=== PATIENT | male | born 1985 | race Caucasian/White ===

== ENCOUNTER 2017-08-21 03:10 | Emergency (ER) | payer BC, OTHER ==
[~2017-08-21] VITALS: Ht 170.2 cm; Wt 68.8 kg
[2017-08-21] MEDS ORDERED: LIDOcaine Viscous 15ml cup PO ONE (04:05)
[2017-08-21 04:36] VITALS: BP 136/90
[2017-08-21] MEDS ORDERED: ibuprofen tablet 400 MG TABLET PO ONE (04:40)
[2017-08-21] MEDS ORDERED: acetaminophen 325mg tablet PO ONE (04:40)
[2017-08-21] MEDS ORDERED: PENI500T2 PO (04:46)
[2017-08-21] MEDS ORDERED: penicillin V potassium 500mg tablet PO ONE (04:50)
== END 2017-08-21 05:01 | disposition home or self-care (01) ==
LOC: ER 03:11
DX: K08.89 Other specified disorders of teeth and supporting structures (principal); Z79.899 Other long term (current) drug therapy
CPT/HCPCS: 99284

== ENCOUNTER 2018-02-03 11:10 | Emergency (ER) | payer OTHER ==
[~2018-02-03] VITALS: Ht 170.2 cm; Wt 68.2 kg
[2018-02-03] MEDS ORDERED: PRED20TA PO (11:54)
[2018-02-03] MEDS ORDERED: AZIT-72 PO (11:54)
[2018-02-03] MEDS ORDERED: ALBU8HFA PO (11:54)
[2018-02-03] MEDS ORDERED: predniSONE 20 mg tablet PO ONE (11:55)
[2018-02-03 12:11] VITALS: BP 128/75
== END 2018-02-03 12:20 | disposition home or self-care (01) ==
LOC: ER 11:10
DX: J40 Bronchitis, not specified as acute or chronic (principal); Z79.899 Other long term (current) drug therapy
CPT/HCPCS: 71045; 99283; J7512